=== PATIENT | male | born 1945 | race Hispanic/Latino ===

== ENCOUNTER 2018-05-12 16:11 | Emergency (ER) | payer MEDICARE, BC ==
[2018-05-12 16:22] VITALS: RESP 18
[2018-05-12] MEDS ORDERED: Tdap Vaccine 0.5 ml Vial (10-64 yrs) IM ONE ×3 (16:59→17:10)
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
[2018-05-12] MEDS ORDERED: Povidone Iodine Topical 10% Sol TOP STA (18:13)
[2018-05-12 20:17] VITALS: BP 127/72; PULSE 79; TEMP 98.6
[2018-05-12 22:54] VITALS: O2SAT 100
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
== END 2018-05-12 20:00 | disposition home or self-care (01) ==
LOC: H.ER 16:11
DX: S01.501A Unspecified open wound of lip, initial encounter (principal); S02.5XXA Fracture of tooth (traumatic), initial encounter for closed fracture; M79.642 Pain in left hand; Y93.55 Activity, bike riding